=== PATIENT | female | born 1985 | race African-American/Black ===

== ENCOUNTER 2018-10-19 19:53 | Emergency (ER) | payer OTHER ==
[~2018-10-19] VITALS: Ht 160 cm; Wt 72.0 kg
[2018-10-19 20:05] VITALS: BP 166/93; PULSE 94; RESP 20; Ht 160 cm; Wt 72.0 kg
--- NOTE | 2018-10-19 20:59 | ERD ---
ER Documentation Chief Complaint Chief Complaint jaylen eye redness/pain since wednesday- causing MACHADO HPI This is a 32-year-old female patient who presents emergency room with complaint of pain and redness in the right eye. 5 days ago patient was laying on her couch when her child threw a basketball at her hitting her in the right eye. c/o blurred vision in right eye, +sharp pain, +rhinorrhea, no double vision, no orbital pain. Hx of dry eyes. No chronic medical problems. ROS All systems reviewed and are negative except as per history of present illness. Medications Home Meds Active Scripts Ibuprofen* (Motrin*) 600 Mg Tab, 600 MG PO Q6, #30 TAB Prov:DAHIANA APARICIO NP 10/19/18 Polymyxin B Sulfate-TMP* (Polymyxin B-TMP Eye Drops*) 10 Ml Drops, 1 DROP RIGHT EYE QID for OCCULAR ABRASION for 7 Days, EA Prov:DAHIANA APARICIO APPLIED BEHAVIOR SPECIALIST 10/19/18 Allergies Allergies: Coded Allergies: No Known Allergy (Unverified , 10/19/18) PMhx/Soc Medical and Surgical Hx: pt denies Medical Hx FmHx Family History: No diabetes, No coronary disease, No other Physical Exam Vitals Vital Signs Date Temp Pulse Resp B/P (MAP) Pulse Ox O2 O2 Flow FiO2 Time Delivery Rate 10/19/18 98.1 94 20 166/93 99 20:05 (117) Physical Exam Const: No acute distress Head: Atraumatic, no battles sign, no maxillary, frontal, nasal, or orbital tenderness Eyes: Conjunctiva injected, +tearing clear, no raccoon eyes, PERRL, EOMI ENT: Normal External Ears, Nose and Mouth. Neck: Full range of motion. No meningismus. No cervical spinal tenderness Resp: Clear to auscultation bilaterally Cardio: Regular rate and rhythm, no murmurs Abd: Soft, non tender, non distended. Normal bowel sounds Neur: Awake and alert, CNII-XII intact Psych: Normal Mood and Affect Results 24 hrs Current Medications Medications Dose Sig/Swathi Start Time Status Last (Trade) Ordered Route PRN Stop Time Admin Dose Reason Admin 1 tab ONCE ONCE 10/19/18 DC 10/19/18 Acetaminophen PO 21:00 10/19/18 21:05 / 21:01 Hydrocodone Bitart ([place] (5/325)) Tetracaine 1 drop ONCE ONCE 10/19/18 DC HCl RIGHT EYE 21:00 10/19/18 (Tetracaine 21:01 0.5% Steri-Unit Tiffanie) Fluorescein 1 strip ONCE ONCE 10/19/18 DC Sodium RIGHT EYE 21:00 10/19/18 (Uvmvr-G-Mayw 21:01 p) Procedures/MDM This is a 32-year-old female patient presents emergency room with pain and redness in right eye. ED COURSE: The patient was stable throughout ED course. DIAGNOSTIC IMAGING: Not indicated PROCEDURES: VA: OD:20/70 OS: 20/50 OU: 20/50 Trevino Lamp: OD: +corneal abrasion at center of cornea over pupil, anterior chamber clear, +brisk light reflex, no FB observed under lids, eyelids without injury MEDICATIONS GIVEN: Tetracaine, Nord[place] Patient tolerated medication well with no adverse reactions. Patient reported improvement in pain. MDM: The patient's injuries appear to be localized to the anterior cornea with resulting irritation to conjunctiva. Clinical exam does not indicate acute retinal detachment, globe rupture, orbit fracture, corneal laceration, foreign body, vitreous detachment, intraocular hemorrhage, lens detachment. Patient symptoms including visual deficit, blurred vision, and pain improved throughout prolonged ED course. Pt had good eye contact with both eyes open and tracking at the time of d/c. No dizziness, no changing vision, no pain with eye movement. Patient discharged with antibiotic eyedrops and strict instruction for close follow-up with her superior court justice. DISPOSITION: The patient has been discharge home to follow-up with community physician. Departure Diagnosis: Primary Impression: Corneal abrasion Encounter type: initial encounter Laterality: right Qualified Codes: S05.01XA - Injury of conjunctiva and corneal abrasion without foreign body, right eye, initial encounter Condition: Stable Patient Instructions: Corneal Abrasion DAHIANA APARICIO NP Oct 19, 2018 20:59
[2018-10-19] MEDS ORDERED: HYDROCODONE/APAP (5/325) TAB PO ONE (21:00)
[2018-10-19] MEDS ORDERED: FLUORESCEIN STRIP RIGHT EYE ONE (21:00)
[2018-10-19] MEDS ORDERED: TETRACAINE 0.5% 4 ML OPH RIGHT EYE ONE (21:00)
[2018-10-19] MEDS ORDERED: POLY10DR19 RIGHT EYE (22:22)
[2018-10-19] MEDS ORDERED: IBUP-1542 PO (22:22)
== END 2018-10-19 22:32 | disposition home or self-care (01) ==
LOC: FTE 19:53
DX: S05.01XA Injury of conjunctiva and corneal abrasion without foreign body, right eye, initial encounter (principal); W21.05XA Struck by basketball, initial encounter; Y92.9 Unspecified place or not applicable
CPT/HCPCS: Z7502; Z7610; 99283